=== PATIENT | female | born 1975 | race American Indian/Alaskan Native ===

== ENCOUNTER 2017-02-10 02:50 | Emergency (ER) | payer MEDICARE, MEDICAID ==
[2017-02-10 02:59] VITALS: BP 157/80; PULSE 93; RESP 20; TEMP 97.6; O2SAT 99
--- NOTE | 2017-02-10 03:35 | C.PDOC ---
History Of Present Illness 41 y/o female presents to ED via EMS. Patient states she had a few drinks tonight and did not want to drive her car home, so she went to the police department to request a ride home. Police reportedly told the patient they were unable to give her a ride and called EMS. On arrival, patient denies any medical complaints. Denies fall, trauma, or any presence of pain. Time Seen by Provider: 02/10/17 03:12 Chief Complaint (Nursing): Medical Clearance History Per: Patient History/Exam Limitations: no limitations Onset/Duration Of Symptoms: Hrs Current Symptoms Are (Timing): Still Present Recent travel outside of the [place]: No Past Medical History Reviewed: Historical Data, Nursing Documentation, Vital Signs Vital Signs: Last Vital Signs Temp 97.6 F 02/10/17 02:56 Pulse 93 H 02/10/17 02:56 Resp 20 02/10/17 02:56 BP 157/80 H 02/10/17 02:56 Pulse Ox 99 02/10/17 03:40 - Medical History PMH: No Chronic Diseases Family History: States: Unknown Family Hx - Social History Hx Alcohol Use: Yes Hx Substance Use: No - Immunization History Hx Tetanus Toxoid Vaccination: No Hx Influenza Vaccination: No Hx Pneumococcal Vaccination: No Review Of Systems Except As Marked, All Systems Reviewed And Found Negative. Constitutional: Negative for: Fever Cardiovascular: Negative for: Chest Pain Respiratory: Negative for: Cough, Shortness of Breath, Wheezing Gastrointestinal: Negative for: Nausea, Vomiting, Abdominal Pain Skin: Negative for: Rash Neurological: Negative for: Headache, Dizziness Physical Exam - Physical Exam Appears: Non-toxic, No Acute Distress, Other (awake, alert, and oriented x3 ) Skin: Normal Color, Warm, Dry Head: Atraumatic, Normacephalic Cardiovascular: Rhythm Regular Respiratory: Normal Breath Sounds, No Rales, No Rhonchi, No Wheezing Back: Normal Inspection Extremity: Normal ROM, Capillary Refill (< 2 sec. ) Neurological/Psych: Oriented x3, Normal Speech, Normal Cognition Gait: Steady ED Course And Treatment O2 Sat by Pulse Oximetry: 99 (RA) Pulse Ox Interpretation: Normal Progress Note: Alcohol serum ordered. Patient is ambulatory in ER w/o difficulty. Pt refused blood test. Breathalizer pos at 0.9. Pt is very alert, steady gait O x 3 and will be discharged, pt will take a taxi home. Case d/w DR billingsley who agrees with emelia saw pt at bedside Disposition - Disposition Referrals: Natalie Hurley MD [Primary Care Provider] - Disposition: HOME/ ROUTINE Disposition Time: 04:55 Condition: STABLE Instructions: Abuse of Alcohol (ED) - Clinical Impression Clinical Impression: Alcohol abuse - PA / DEVELOPMENTAL MATHEMATICS INSTRUCTOR / Resident Statement MD/DO has reviewed & agrees with the documentation as recorded. - Scribe Statement The provider has reviewed the documentation as recorded by the Farrukh Doyle Provider Scribe Attestation: All medical record entries made by the Farrukh were at my direction and personally dictated by me. I have reviewed the chart and agree that the record accurately reflects my personal performance of the history, physical exam, medical decision making, and the department course for this patient. I have also personally directed, reviewed, and agree with the discharge instructions and disposition.
== END 2017-02-10 04:29 | disposition home or self-care (01) ==
LOC: C.ER 02:50 → SUPCPDRO 02:50 → C.ER 04:29
DX: F10.10 Alcohol abuse, uncomplicated (principal)